=== PATIENT | female | born 1970 | race Caucasian/White ===

== ENCOUNTER 2021-02-14 08:36 | Emergency (ER) | payer MEDICAID ==
[~2021-02-14] VITALS: Ht 165.1 cm; Wt 89.0 kg
[2021-02-14] MEDS ORDERED: ACETAMINOPHEN 325MG TABLET PO ONE (09:45)
[2021-02-14] MEDS ORDERED: IBUP-2028 PO (09:47)
[2021-02-14 10:40] VITALS: BP 127/88
== END 2021-02-14 10:40 | disposition home or self-care (01) ==
LOC: ER 08:42
DX: M79.10 Myalgia, unspecified site (principal); M32.9 Systemic lupus erythematosus, unspecified; Z90.710 Acquired absence of both cervix and uterus; V43.52XA Car driver injured in collision with other type car in traffic accident, initial encounter; Y93.89 Activity, other specified; Y92.488 Other paved roadways as the place of occurrence of the external cause
CPT/HCPCS: 71045; 81025; 93005; 99285

== ENCOUNTER 2021-02-23 11:59 | Emergency (ER) | payer MEDICAID ==
[~2021-02-23] VITALS: Ht 149.9 cm; Wt 77.0 kg
[~2021-02-23 11:59] MED LIST: IBUP-2028 PO
[2021-02-23 12:15] VITALS: BP 168/84
[2021-02-23] MEDS ORDERED: ACETAMINOPHEN 325MG TABLET PO ONE (12:45)
[2021-02-23] MEDS ORDERED: IBUP-2028 MT (13:44)
== END 2021-02-23 14:28 | disposition home or self-care (01) ==
LOC: ER 11:59
DX: S20.01XA Contusion of right breast, initial encounter (principal); Z98.890 Other specified postprocedural states; X58.XXXA Exposure to other specified factors, initial encounter; Y93.89 Activity, other specified; Y92.89 Other specified places as the place of occurrence of the external cause; Y99.8 Other external cause status
CPT/HCPCS: 76641; 81025; 99284